=== PATIENT | female | born 1985 | race Caucasian/White ===

== ENCOUNTER 2022-12-31 07:14 | Outpatient (CLI) | payer OTHER, SELFPAY ==
--- NOTE | 2022-12-31 07:15 | CRLHL7_ITS ---
For Patients: As a result of the Century Cures Act, medical imaging exams and procedure reports are released immediately into your electronic medical record. You may view this report before your referring provider. If you have questions, please contact your health care provider. CLINICAL HISTORY: Displacement of intrauterine contraceptive device TECHNIQUE: 2D chou scale and color Doppler images were acquired of the pelvis using a transvaginal approach. FINDINGS: On transvaginal imaging, the myometrium has a normal uniform echotexture. The intrauterine device is located in good position within the endometrial canal. The left ovary measures 3.3 x 2.9 x 2.5 cm in size and the right ovary measures 2.7 x 1.7 x 2.3 cm. The ovaries demonstrate normal arterial and venous blood flow on color Doppler analysis. Dominant follicles within the left ovary are present measuring up to 1.5 cm. Trace physiologic free fluid noted. IMPRESSION: Normal position of the IUD within the endometrial canal. Dictated by Brendon Appiah MD @ 12/31/2022 11:48:16 AM (Electronically Signed)
== END 2022-12-31 07:15 | disposition home or self-care (01) ==
LOC: US 07:15
PROVIDERS: Visit Provider Physician Assistant
DX: T83.32XA Displacement of intrauterine contraceptive device, initial encounter (principal)
CPT/HCPCS: 76830; 80061; 82306; 82947; 84443

== ENCOUNTER 2024-02-28 13:43 | Outpatient (CLI) | payer BC, SELFPAY | END 2024-02-28 13:44 | disposition home or self-care (01) | PROVIDERS: Visit Provider Obstetrics & Gynecology | DX: Z01.419 Encounter for gynecological examination (general) (routine) without abnormal findings (principal); N39.46 Mixed incontinence; L65.9 Nonscarring hair loss, unspecified; Z13.6 Encounter for screening for cardiovascular disorders | CPT/HCPCS: 80061; 84443; 87086 ==

== ENCOUNTER 2024-03-17 09:15 | Outpatient (CLI) | payer BC, SELFPAY ==
--- NOTE | 2024-03-17 09:15 | CRLHL7_ITS ---
For Patients: As a result of the Century Cures Act, medical imaging exams and procedure reports are released immediately into your electronic medical record. You may view this report before your referring provider. If you have questions, please contact your health care provider. BILATERAL SCREENING MAMMOGRAM WITH COMPUTER-AIDED DETECTION AND TOMOSYNTHESIS TECHNIQUE: CC and MLO views were obtained. These mammographic images have been obtained using full-field digital technique. These mammographic images were interpreted with the benefit of computer-aided detection. Breast tomosynthesis was used in this interpretation. COMPARISON FILM: None. This is a baseline study. FINDINGS: There are scattered areas of fibroglandular density. IMPRESSION: There is no radiographic evidence for malignancy. ASSESSMENT: BI-RADS Category 1: Negative RECOMMENDATION: Routine screening mammogram in 1 year. A lay language report of this examination will be provided to the patient. BRENDON PARADA M.D. Diagnostic Radiologist [email or web address] Transcribed: 03/17/2024, 4:[address]/Dictated by: Brendon Parada MD @ 03/17/2024 11:52:00 AM (Electronically Signed)
== END 2024-03-17 09:16 | disposition home or self-care (01) ==
LOC: MAMMO 09:16
PROVIDERS: Visit Provider Obstetrics & Gynecology
DX: Z12.31 Encounter for screening mammogram for malignant neoplasm of breast (principal)
CPT/HCPCS: 77063; 77067

== ENCOUNTER 2024-03-27 09:30 | Outpatient (RCR) | payer BC, SELFPAY | END 2024-07-25 23:59 | disposition home or self-care (01) | PROVIDERS: PCP Obstetrics & Gynecology; Visit Provider Obstetrics & Gynecology | DX: N39.46 Mixed incontinence (principal); Z51.89 Encounter for other specified aftercare | CPT/HCPCS: 97112; 97161; 97530; 97535 ==

== ENCOUNTER 2025-03-27 15:04 | Outpatient (CLI) | payer BC, SELFPAY | END 2025-03-27 15:05 | disposition home or self-care (01) | PROVIDERS: PCP Family Medicine; Visit Provider Family Medicine | DX: R10.9 Unspecified abdominal pain (principal); R19.7 Diarrhea, unspecified | CPT/HCPCS: 80053; 83690; 86140 ==